=== PATIENT | male | born 1960 | race Caucasian/White ===

== ENCOUNTER 2023-12-03 21:24 | Emergency (ER) | payer BC, SELFPAY ==
[2023-12-03 21:31] VITALS: BP 128/78; BMI 29.8
[2023-12-03 21:57] LABS: % Basophils 0.6 % (0-2); % Eosinophils 1.9 % (0-6); % Immature Granulocytes 0.4 % (0-0.5); % Lymphocytes 16.8 % (20.5-51.1); % Monocytes 9.7 % (1.7-9.3); % Neutrophils 70.6 % (42.2-75.2); Absolute Basophils 0.1 10^3/uL (0-0.2); Absolute Eosinophils 0.2 10^3/uL (0-0.7); Absolute Lymphocytes 1.5 10^3/uL (1.2-3.4); Absolute Monocytes 0.9 10^3/uL (0.1-0.6); Absolute Neutrophils 6.3 10^3/uL (1.4-6.5); Hematocrit 37.6 % (39.0-52.0); Hemoglobin 12.8 g/dL (13.0-18.0); Mean Corpuscular Hgb 31.1 pg (27.0-31.0); Mean Corpuscular Volume 91.3 fL (80.0-94.0); Mean Platelet Volume 10.4 fL (7.4-10.4); Nucleated Red Blood Cells % 0 % (-); Platelet Count 221 10^3/uL (130-400); Red Blood Cell Count 4.12 10^6/uL (4.70-6.10); Red Cell Dist. Width 14.1 % (11.5-14.5); White Blood Cell Count 8.9 10^3/uL (4.8-10.8)
[2023-12-03 22:15] LABS: ALT (SGPT) 22 U/L (0-50); AST (SGOT) 22 U/L (17-59); Albumin 4.7 g/dl (3.5-5.0); Alkaline Phosphatase 46 U/L (38-126); Blood Urea Nitrogen 19 mg/dl (9-20); Calcium 9.8 mg/dl (8.4-10.2); Carbon Dioxide 27 mmol/L (22-30); Chloride 96 mmol/L (98-107); Estimated Creatinine Clearance 104 ml/min; Glucose 130 mg/dl (70-99); Potassium 4.1 mmol/L (3.5-5.1); Sodium 134 mmol/L (135-145); Total Bilirubin 0.2 mg/dl (0.2-1.3); Total Protein 7.1 g/dl (6.3-8.2); eGFR > 60.00
[2023-12-03 22:19] LABS: Troponin I < 0.012 ng/ml
[2023-12-03 23:32] VITALS: BP 131/72
[2023-12-04] VITALS: BP 121/79
[2023-12-04 00:23] VITALS: BP 132/76
[2023-12-04 00:25] VITALS: BP 132/76
--- NOTE | 2023-12-04 00:46 | ED.GENMED ---
History of Present Illness
General
Chief Complaint: Breathing Problem
Source: patient
Exam Limitations: none
Time Seen by Provider: 12/04/23 00:16
Nursing documentation reviewed up to this point in time: agreed with
Travel History
Have you had any contact with someone who has COVID-19?: No
Do you have any symptoms of coronavirus? Fever > 100 degrees, chills, cough, shortness of breath, sore throat, loss of taste or smell, muscle aches, or headache?: No
History of Present Illness
History of Present Illness:
Patient presents to ED for evaluation secondary to sudden onset of chest pain with shortness of breath, on approximately half hour after having dinner around 7:30 PM. Chest pain described as pressure, across anterior chest, nonradiating, without
any alleviating factors, but worse with deep inspiration. Patient feels as though he is unable to take full breath in. Denies dizziness. Denies nausea or vomiting. Denies dizziness. Denies diaphoresis. Denies previous history of similar
symptoms. Denies back pain. Denies leg swelling. Patient does report having travel to [place] recently. In addition, there is family history of aortic aneurysm.
Past History
Past History
ED Past Medical History: Other (Sciatica, previous thyroid cancer with resection)
ED Past Surgical History: Orthopedic and Other (Transmiter)
Social History
Tobacco: Non-smoker
Personal:
Employment: Employed
Family History
Family History: Negative Diabetes, Hypertension or CAD
Review of Systems
Review of Systems
Allergies reviewed?: Yes
All Other Systems: ROS reviewed and negative except as documented in HPI and ROS
Constitutional: Reports no symptoms
EENT: Reports no symptoms
Respiratory: Reports trouble breathing
Cardiac: Reports chest pain
ABD/GI: Reports no symptoms
Musculoskeletal: Reports no symptoms
Skin: Reports no symptoms
Neurological: Reports no symptoms
Phy Exam
Physical Exam
Physical Exam:
Physical Exam
General: mild distress, not acutely ill. afebrile
Head: nc/at. eomi
Neck: supple. no meningeal signs.
Heart: s1/s2 regular rate and rhythm, no murmur. equal radial pulses.
Lungs: no acute respiratory distress. clear bilaterally. chest wall nontender to palpation.
Abdomen: normal bowel sounds. not tender.
Neuro: alert and oriented. no focal neurological deficits
Skin: no rash
Psychiatric: well kept. interactive and cooperative
Extremities: no edema. no calf tenderness.
Scores
Heart Failure Risk
Heart Failure Risk Score: Not Applicable
Course
Orders/Labs/Results
Orders:
Orders
12/03/23 21:30
Electrocardiogram (*1) Urgent
Reason for Study: Other
Other Reason for Exam: Respiratory Distress
EKG- Treatment ONCE
CR Chest - 2 Views Urgent
Comment:
Reason For Exam: respiratory distress
12/03/23 21:46
Complete Blood Count/With Diff Urgent
Comprehensive Metabolic Panel Urgent
Troponin I Urgent
12/04/23 00:24
Electrocardiogram (*1) Urgent
Reason for Study: Chest Pain
CT Angio Chest/Abd W/Wo Iv Contrast [CT Chest/abd Angio W/wo Iv Con] Urgent
Comment:
Reason For Exam: chest pain with sob
EKG- Treatment ONCE
12/04/23 02:22
Troponin I Urgent
12/04/23 02:29
Mag Hydrox/Al Hydrox/Simeth [Maalox] 30 ml Phenobarb/Hyoscy/Atropine/Scop [] 10 ml PO NOW
12/04/23 02:31
Mag Hydrox/Al Hydrox/Simeth [Maalox] 30 ml .ROUTE .STK-MED ONE
Phenobarb/Hyoscy/Atropine/Scop [] 10 ml .ROUTE .STK-MED ONE
Abnormal Lab Results
12/03/23
21:46
RBC 4.12 L 10^6/uL
(4.70-6.10)
Hgb 12.8 L g/dL
(13.0-18.0)
Hct 37.6 L %
(39.0-52.0)
MCH 31.1 H pg
(27.0-31.0)
Absolute Monos (auto) 0.9 H 10^3/uL
(0.1-0.6)
Lymphocytes % 16.8 L %
(20.5-51.1)
Monocytes % 9.7 H %
(1.7-9.3)
Sodium 134 L mmol/L
(135-145)
Chloride 96 L mmol/L
(98-107)
Glucose 130 H mg/dl
(70-99)
12/03/23 21:46
12/03/23 21:46
Vital Signs
Initial and Last Documented VS:
Initial Vital Signs
Temp Pulse Resp BP Pulse Ox
97.4 F 85 16 128/78 99
12/03/23 21:31 12/03/23 21:31 12/03/23 21:31 12/03/23 21:31 12/03/23 21:31
Last Documented Vital Signs
Temp Pulse Resp BP Pulse Ox
97.4 F 99 20 120/70 97
12/03/23 21:31 12/04/23 03:34 12/04/23 03:34 12/04/23 03:34 12/04/23 03:34
MDM/Problems Addressed
MDM/Problems Addressed:
CTA chest/abd: no acute findings. Otherwise, patient remains hemodynamically stable and nontoxic appearing. However, given patient's presentation along with family hx heart dz, patient will be discharged home with referral to cardiology for urgent
outpatient consultation. Pt will be advised to return with worsening symptoms.
*EKG
Interpreted by ED Provider?: Yes
EKG Intrepretation Date: 12/04/23
Heart Rate: 78
Rate: normal
Rhythm: sinus
Evans: normal axis
Interval: normal interval
*Critical Care Note
Total Time (30-74mins, 75-104mins- exclusive of procedures): Not Applicable
ED Attending Note
-
Portions of this chart may have been created with voice recognition software.� Occasional wrong word or��sound alike� substitutions may have occurred due to the inherent limitations of voice recognition software.
Discharge Plan
Departure
Patient Disposition: Home (Routine Discharge)
Date of Disposition: 12/04/23
Time of Disposition: 03:04
Patient with high blood pressure during this ER visit?: Yes
Condition: Good
Discharge Problem:
Chest pain
Instructions: Chest Pain DCA Follow Up
Prescriptions:
No Action
cyclobenzaprine 10 MG tablet
10 mg PO HSPRN PRN (Reason: spasm)
tramadol 50 MG tablet
50 mg PO Q6HPRN PRN (Reason: pain)
gabapentin 300 MG capsule
600 mg PO TID
hydromorphone 4 MG tablet
4 mg PO Q6HPRN PRN (Reason: pain)
diazepam 5 MG tablet
5 mg PO HSPRN PRN (Reason: spasm)
buprenorphine [Butrans] 1 EACH patch weekly
1 ea TD TH
Venlafaxine Extended Release
1 tab PO DAILY
Referrals:
Jamie Ayala DO [Family Provider] -
Stacy Becker DO [Active] -
Activity Restrictions/Additional Instructions:
As discussed, please follow-up with your primary care physician and/or referred sound technician supervisor for further evaluation and treatment. Please return to ED with worsening symptoms.
Interventions
Interventions:
*Risk Screen - Suicide Last Done: 12/03/23 21:31
*General Assessment Last Done: 12/04/23 00:17
*Neglect/Abuse Screening Last Done: 12/03/23 21:31
ED- Fall Risk Assessment Last Done: 12/04/23 00:17
*ED COVID-19 Vaccine History Last Done: 12/03/23 21:31
*Nursing Disposition Last Done: 12/04/23 03:30
ED- Cardiac Assessment Last Done: 12/04/23 00:17
ED- Pulmonary Assessment Last Done: 12/04/23 00:17
Discharge Date and Time
Discharge Date/Time: 12/04/23 03:45
[2023-12-04 02:04] VITALS: BP 131/77
[2023-12-04] MEDS: MAALOX 40 PO (02:32)
[2023-12-04 03:26] LABS: Troponin I < 0.012 ng/ml
[2023-12-04 03:34] VITALS: BP 120/70
== END 2023-12-04 03:45 | disposition home or self-care (01) ==
LOC: EMR 21:24
PROVIDERS: EMERGENCY PHYSICIAN Emergency Medicine; FAMILY PHYSICIAN Family Medicine
DX: R07.89 Other chest pain (principal); R03.0 Elevated blood-pressure reading, without diagnosis of hypertension
CPT/HCPCS: 99285; 71046; 71275; 74175; 80053; 84484; 85025; 93005; Q9967